=== PATIENT | female | born 1935 | race Caucasian/White ===

== ENCOUNTER 2017-05-20 17:48 | Observation (INO) | payer MEDICARE ==
--- NOTE | 2017-05-20 18:21 | ED ---
General Adult HPI - General Chief complaint: Chest Pain Stated complaint: Chest Pain Time Seen by Provider: 05/20/17 17:53 Source: patient, EMS, RN notes reviewed Mode of arrival: EMS Limitations: no limitations - History of Present Illness Initial comments: 81-year-old female presents with a one-day history of left anterior chest pain. Patient describes the pain as an ache, she does admit to taking trauma to her back. [facility]. Patient admits to having a cough over the past 4 hours, this was productive of thick sputum. She also admits to one episode of vomiting. Patient was given aspirin and nitroglycerin prior to arrival by EMS. EMS did report a reduction in her symptoms with nitroglycerin. Patient has no known history of coronary artery disease. She is a nonsmoker. Patient states that with her hip operation she was found to be in A. fib. She believes she was started on a blood thinner but is on certain of the name. - Related Data Home Medications Medication Instructions Recorded Confirmed Albuterol Nebulized [Ventolin 2.5 mg INHALATION RT-Q6H PRN 02/02/16 05/20/17 Nebulized] Calcium Carbonate/Vitamin D3 1 tab PO DAILY@1700 02/02/16 05/20/17 [Calcium 600-Vit D3 200 Tablet] Fexofenadine HCl [Ayaka Allergy] 180 mg PO DAILY@0800 02/02/16 05/20/17 Fluticasone/Salmeterol [Advair 1 puff INHALATION RT-BID@0800,1700 02/02/1605/20 500-50 Diskus] Levothyroxine Sodium [Synthroid] 75 mcg PO DAILY@0600 02/02/16 05/20/17 Losartan [Cozaar] 25 mg PO DAILY@0800 02/02/16 05/20/17 Multivitamins, Thera [Multivitamin] 1 tab PO BID@0800,1700 02/02/16 05/20/17 traMADol HCL [Ultram] 50 mg PO Q12H PRN 02/02/16 05/20/17 ALPRAZolam [Xanax] 0.5 mg PO BID PRN 05/20/17 05/20/17 Acetaminophen Tab [Tylenol Tab] 650 mg PO Q4H PRN 05/20/17 05/20/17 Bacillus Coagulans [Digestive 2 tab PO DAILY@1700 05/20/17 05/20/17 Advantage] Bisacodyl [Dulcolax] 10 mg RECTAL DAILY PRN 05/20/17 05/20/17 Docusate [Colace] 100 mg PO BID@0800,1700 05/20/17 05/20/17 Glucerna 1.5 237 ml PO AC-TID@08,12,17 05/20/17 05/20/17 Glucosamine/Chondr Kruger A Sod [Osteo 1 tab PO BID@0800,1700 05/20/17 05/20/17 Bi-Flex Caplet] HYDROcodone/APAP 5-325MG [[place] 1 - 2 tab PO Q4HR PRN 05/20/17 05/20/17 5-325] Hydrocortisone Cream 1 applic TOPICAL BID 05/20/17 05/20/17 [Hydrocortisone 2.5% Cream] Magnesium Hydroxide [Milk of 2,400 mg PO DAILY PRN 05/20/17 05/20/17 Magnesia] Magnesium Oxide [Mag-Ox] 400 mg PO BID@0800,1700 05/20/17 05/20/17 Metoprolol Tartrate [Lopressor] 25 mg PO BID@0800,2100 05/20/17 05/20/17 Na Phos,M-B/Na Phos,Di-Ba [Fleet 133 ml RECTAL ONCE PRN 05/20/17 05/20/17 Adult] Rivaroxaban [Xarelto] 20 mg PO DAILY@1700 05/20/17 05/20/17 Sucralfate [Carafate] 1 gm PO TID PRN 05/20/17 05/20/17 Allergies Allergy/AdvReac Type Severity Reaction Status Date / Time acetaminophen [From Vicodin] Allergy "spaced Verified 05/20/17 19:00 out" alendronate sodium Allergy Unknown Verified 05/20/17 19:00 [From Fosamax] ciprofloxacin [From Cipro] Allergy Unknown Verified 05/20/17 19:00 ciprofloxacin HCl Allergy Unknown Verified 05/20/17 19:00 [From Cipro] clarithromycin [From Biaxin] Allergy Unknown Verified 05/20/17 19:00 codeine Allergy Unknown Verified 05/20/17 19:00 Childhood diazepam [From Valium] Allergy Unknown Verified 05/20/17 19:00 diphenhydramine HCl Allergy Unknown Verified 05/20/17 19:00 [From Benadryl] famotidine [From Pepcid] Allergy Swelling Verified 05/20/17 19:00 gabapentin [From Neurontin] Allergy "spaced Verified 05/20/17 19:00 out" gatifloxacin [From Tequin] Allergy Unknown Verified 05/20/17 19:00 hydrocodone bitartrate Allergy "spaced Verified 05/20/17 19:00 [From Vicodin] out" levofloxacin [From Levaquin] Allergy Unknown Verified 05/20/17 19:00 moxifloxacin HCl Allergy Unknown Verified 05/20/17 19:00 [From Avelox] nystatin Allergy Unknown Verified 05/20/17 19:00 ofloxacin [From Floxin] Allergy Unknown Verified 05/20/17 19:00 Penicillins Allergy Unknown Verified 05/20/17 19:00 Childhood pregabalin [From Lyrica] Allergy Unknown Verified 05/20/17 19:00 propoxyphene napsylate Allergy Unknown Verified 05/20/17 19:00 [From Darvocet-N] rofecoxib [From Vioxx] Allergy Unknown Verified 05/20/17 19:00 Sulfa (Sulfonamide Allergy Unknown Verified 05/20/17 19:00 Antibiotics) Childhood zolpidem tartrate Allergy Unknown Verified 05/20/17 19:00 [From Ambien] Review of Systems ROS Statement: Those systems with pertinent positive or pertinent negative responses have been documented in the HPI. ROS Other: All systems not noted in ROS Statement are negative. Past Medical History Past Medical History: Atrial Fibrillation, Asthma, Diabetes Mellitus, Deep Vein Thrombosis (DVT), Fibromyalgia, Hypertension, Osteoarthritis (OA), Thyroid Disorder Additional Past Medical History / Comment(s): hx migraines, fell in garage 01/21 and injured both wrists and back (splint on left wrist,wrap on rt wrist), DVT 3 yrs ago, hiatal hernia, hx ulcer, osteoporosis, "very thin skin- discolored skin on legs", diet control diabetic, hx frequent UTI's History of Any Multi-Drug Resistant Organisms: None Reported Past Surgical History: Back Surgery, Heart Catheterization, Hernia Repair, Hysterectomy Additional Past Surgical History / Comment(s): deviated septum, kyphoplasty, steve cataracts Past Anesthesia/Blood Transfusion Reactions: Motion Sickness, Postoperative Nausea & Vomiting (PONV) Past Psychological History: Anxiety, Depression Smoking Status: Former smoker Past Alcohol Use History: None Reported Past Drug Use History: None Reported - Past Family History Mother Family Medical History: Cancer Brother(s) Family Medical History: Cancer Sister(s) Family Medical History: Cancer General Exam Limitations: no limitations General appearance: alert, in no apparent distress Head exam: Present: atraumatic, normocephalic Eye exam: Present: normal appearance, PERRL ENT exam: Present: normal exam Neck exam: Present: normal inspection. Absent: tenderness, meningismus Respiratory exam: Present: normal lung sounds bilaterally. Absent: respiratory distress, wheezes Cardiovascular Exam: Present: regular rate, normal rhythm GI/Abdominal exam: Present: soft. Absent: distended, tenderness Extremities exam: Present: normal inspection, normal capillary refill, other ( Bilateral DP pulses). Absent: pedal edema Neurological exam: Present: alert, oriented X3. Absent: motor sensory deficit, reflexes normal Psychiatric exam: Present: normal affect, normal mood Skin exam: Present: warm, dry, intact. Absent: cyanosis, diaphoretic Course Vital Signs 05/20/17 05/20/17 05/20/17 17:50 19:50 20:45 Temperature 98.6 F Pulse Rate 73 84 70 Respiratory 20 20 20 Rate Blood Pressure 139/66 139/66 143/69 O2 Sat by Pulse 99 99 99 Oximetry 05/20/17 21:20 Temperature 98.3 F Pulse Rate 70 Respiratory 18 Rate Blood Pressure 123/58 O2 Sat by Pulse 97 Oximetry EKG Findings - EKG Comments: EKG Findings:: EKG shows sinus rhythm with PVC, ventricular rate 75, WV interval 176, QRS 82, QTC 442, no ST segment elevation no T-wave abnormality Medical Decision Making - Medical Decision Making 81-year-old female [facility]. Patient's pain is central, she does state that was somewhat relieved with nitroglycerin. She has no history of CAD. Patient has had a productive cough, one episode of vomiting. Laboratory studies reveal stable hemoglobin 10.1, no elevated white blood cell count normal at 5.7, d-dimer significantly elevated 3.9, initial troponin is negative. CT angiography is obtained given the elevated d-dimer, this is negative for pulmonary embolism. Chest x-ray does show hyperinflation consistent with COPD, however patient has no known history COPD and states she hasn't smoked in 30 years. EKG is nonischemic. Patient will be kept for serial cardiac enzymes and cardiology evaluation. - Lab Data Result diagrams: 05/20/17 17:55 05/20/17 17:55 Lab Results 05/20/17 05/20/17 05/20/17 Range/Units 17:55 17:55 17:55 WBC 5.7 (3.8-10.6) k/uL RBC 3.59 L (3.80-5.40) m/uL Hgb 10.1 L (11.4-16.0) gm/dL Hct 33.6 L (34.0-46.0) % MCV 93.5 (80.0-100.0) fL MCH 28.2 (25.0-35.0) pg MCHC 30.1 L (31.0-37.0) g/dL RDW 13.2 (11.5-15.5) % Plt Count 456 H (150-450) k/uL Neutrophils % 67 % Lymphocytes % 23 % Monocytes % 6 % Eosinophils % 1 % Basophils % 0 % Neutrophils # 3.9 (1.3-7.7) k/uL Lymphocytes # 1.3 (1.0-4.8) k/uL Monocytes # 0.3 (0-1.0) k/uL Eosinophils # 0.1 (0-0.7) k/uL Basophils # 0.0 (0-0.2) k/uL Hypochromasia Slight PT (9.0-12.0) sec INR (<1.2) APTT (22.0-30.0) sec D-Dimer (<0.60) mg/L FEU Sodium 138 (137-145) mmol/L Potassium 4.0 (3.5-5.1) mmol/L Chloride 101 (98-107) mmol/L Carbon Dioxide 26 (22-30) mmol/L Anion Gap 11 mmol/L BUN 14 (7-17) mg/dL Creatinine 0.69 (0.52-1.04) mg/dL Est GFR (MDRD) Af Amer >60 (>60 ml/min/1.73 sqM) Est GFR (MDRD) Non-Af >60 (>60 ml/min/1.73 sqM) Glucose 176 H (74-99) mg/dL Calcium 10.0 (8.4-10.2) mg/dL Magnesium 2.0 (1.6-2.3) mg/dL Total Bilirubin 0.4 (0.2-1.3) mg/dL AST 19 (14-36) U/L ALT 22 (9-52) U/L Alkaline Phosphatase 144 H (38-126) U/L Total Creatine Kinase 21 L (30-135) U/L CK-MB (CK-2) 0.4 (0.0-2.4) ng/mL CK-MB (CK-2) Rel Index 1.9 Troponin I <0.012 (0.000-0.034) ng/mL NT-Pro-B Natriuret Pep pg/mL Total Protein 6.5 (6.3-8.2) g/dL Albumin 3.7 (3.5-5.0) g/dL 05/20/17 05/20/17 Range/Units 17:55 17:55 WBC (3.8-10.6) k/uL RBC (3.80-5.40) m/uL Hgb (11.4-16.0) gm/dL Hct (34.0-46.0) % MCV (80.0-100.0) fL MCH (25.0-35.0) pg MCHC (31.0-37.0) g/dL RDW (11.5-15.5) % Plt Count (150-450) k/uL Neutrophils % % Lymphocytes % % Monocytes % % Eosinophils % % Basophils % % Neutrophils # (1.3-7.7) k/uL Lymphocytes # (1.0-4.8) k/uL Monocytes # (0-1.0) k/uL Eosinophils # (0-0.7) k/uL Basophils # (0-0.2) k/uL Hypochromasia PT 13.6 H (9.0-12.0) sec INR 1.4 H (<1.2) APTT 30.2 H (22.0-30.0) sec D-Dimer 3.90 H (<0.60) mg/L FEU Sodium (137-145) mmol/L Potassium (3.5-5.1) mmol/L Chloride (98-107) mmol/L Carbon Dioxide (22-30) mmol/L Anion Gap mmol/L BUN (7-17) mg/dL Creatinine (0.52-1.04) mg/dL Est GFR (MDRD) Af Amer (>60 ml/min/1.73 sqM) Est GFR (MDRD) Non-Af (>60 ml/min/1.73 sqM) Glucose (74-99) mg/dL Calcium (8.4-10.2) mg/dL Magnesium (1.6-2.3) mg/dL Total Bilirubin (0.2-1.3) mg/dL AST (14-36) U/L ALT (9-52) U/L Alkaline Phosphatase (38-126) U/L Total Creatine Kinase (30-135) U/L CK-MB (CK-2) (0.0-2.4) ng/mL CK-MB (CK-2) Rel Index Troponin I (0.000-0.034) ng/mL NT-Pro-B Natriuret Pep 321 pg/mL Total Protein (6.3-8.2) g/dL Albumin (3.5-5.0) g/dL Disposition Clinical Impression: Chest pain Disposition: ADMITTED IP TO THIS [facility] Condition: Stable Referrals: Pepe Verdugo MD [Primary Care Provider] - 1-2 days Decision to Admit Reason: Admit from [facility] Decision Date: 05/20/17 Decision Time: 21:05
[2017-05-20 18:58] LABS: Basophils % (A) 0 %; CHCM 31.1; Eosinophils # (A) 0.1 k/uL (0-0.7); Eosinophils % (A) 1 %; HCT 33.6 % (34.0-46.0); HDW 2.39; HGB 10.1 gm/dL (11.4-16.0); Hypochromasia Slight; Luc # (Auto) 0.14; Luc % (Auto) 3; Lymphocytes # (A) 1.3 k/uL (1.0-4.8); Lymphocytes % (A) 23 %; MCH 28.2 pg (25.0-35.0); MCHC 30.1 g/dL (31.0-37.0); MCV 93.5 fL (80.0-100.0); Mean Platelet Volume 6.5; Monocytes # (A) 0.3 k/uL (0-1.0); Monocytes % (A) 6 %; Neutrophils # (A) 3.9 k/uL (1.3-7.7); Neutrophils % (A) 67 %; RBC 3.59 m/uL (3.80-5.40); RDW 13.2 % (11.5-15.5); WBC 5.7 k/uL (3.8-10.6); WBC (Perox) 5.27
[2017-05-20 19:08] LABS: ALT 22 U/L (9-52); AST 19 U/L (14-36); Alkaline Phosphatase 144 U/L (38-126); Anion Gap 11 mmol/L; Blood Urea Nitrogen 14 mg/dL (7-17); Carbon Dioxide 26 mmol/L (22-30); Chloride 101 mmol/L (98-107); Glucose 176 mg/dL (74-99); Non-African American GFR(MDRD) >60 (>60 ml/min/1.73 sqM); Sodium 138 mmol/L (137-145); Total Bilirubin 0.4 mg/dL (0.2-1.3); Total Protein 6.5 g/dL (6.3-8.2)
[2017-05-20 19:14] LABS: INR 1.4 (<1.2); Partial Thromboplastin Time 30.2 sec (22.0-30.0); Prothrombin Time 13.6 sec (9.0-12.0)
[2017-05-20 19:19] LABS: Creatine Kinase 21 U/L (30-135)
[2017-05-20 19:32] LABS: Creatine Kinase MB 0.4 ng/mL (0.0-2.4); Troponin I <0.012 ng/mL (0.000-0.034)
[2017-05-20] MEDS ORDERED: RX INFO: IV CONTRAST WAS GIVEN 1 EACH MISC MISCELLANE PRN (19:40)
--- NOTE | 2017-05-20 20:04 | XR ---
EXAMINATION TYPE: XR chest 2V DATE OF EXAM: 05/20/2017 COMPARISON: NONE HISTORY: Chest pain TECHNIQUE: Frontal and lateral views of the chest are obtained. FINDINGS: There is no heart failure nor confluent pneumonic infiltrate. There is mild pulmonary hype rinflation. There is 20% wedging of upper thoracic vertebra. There is 30% anterior wedging of T10 lenny tebra. There are chest leads. Thoracic aorta is atheromatous. There are no hilar masses. IMPRESSION: There is probably some COPD. No acute lung disease. Mild thoracic compression fractures.
--- NOTE | 2017-05-20 20:55 | CT ---
EXAMINATION TYPE: CT angio chest DATE OF EXAM: 05/20/2017 8:17 PM COMPARISON: NONE HISTORY: Chest pain. Post op hip sx x2 weeks. CT DLP: 191.1 mGycm Automated exposure control for dose reduction was used. CONTRAST: CTA scan of the thorax is performed with IV Contrast, patient injected with 65 mL of Omnipaque 300, p ulmonary embolism protocol. There are 3-D post processed images.. FINDINGS: Lungs are clear of consolidation. There is a 3 cm patch of interstitial infiltrate in the left upper lobe. There is no sign of a pulmonary mass. There are some interstitial infiltrates and atelectasis a t the lung bases. Heart size is top normal. There is no pericardial effusion. There is no pleural eff usion. I see no filling defects in the pulmonary arteries. There is no evidence of aortic aneurysm or dissec tion. Thoracic aorta is atheromatous. There is no mediastinal adenopathy. There are no hilar masses. There is compression deformity of several thoracic vertebra with osteopenia. There is compression def ormity of L1 and L2 vertebra. There is L1 vertebroplasty. IMPRESSION: NO EVIDENCE OF PULMONARY EMBOLISM. MULTIPLE OSTEOPOROTIC COMPRESSION FRACTURES. PULMONARY FIBROTIC CH ANGES. ATHEROSCLEROTIC VASCULAR DISEASE. BORDERLINE CARDIOMEGALY.
[2017-05-20] MEDS ORDERED: ONDANSETRON 4 MG/2 ML VIAL IVP PRN (21:28)
[2017-05-20] MEDS ORDERED: NALOXONE 0.4 MG/ML 1 ML VIAL IV PRN (21:28)
[2017-05-20] MEDS ORDERED: SODIUM CHLORIDE 0.9% 1,000 ML IV SCH (21:30)
[2017-05-20] MEDS ORDERED: ASPIRIN 81 MG PO STA (21:30)
[2017-05-20] MEDS ORDERED: ALPRAZolam 0.5 MG TAB PO PRN (21:31)
[2017-05-20 23:09] VITALS: BMI 22.4
[2017-05-20] MEDS: HYDROcodone/APAP 5-325MG 1 EACH TAB PO PRN (23:40)
[2017-05-21 00:13] VITALS: RESP 18
[2017-05-21 00:19] LABS: Creatine Kinase <20 U/L (30-135)
[2017-05-21 00:32] LABS: Creatine Kinase MB 0.4 ng/mL (0.0-2.4); Troponin I <0.012 ng/mL (0.000-0.034)
[2017-05-21] MEDS: HYDROcodone/APAP 5-325MG 1 EACH TAB PO PRN (04:02)
[2017-05-21] MEDS ORDERED: LEVOTHYROXINE 75 MCG TAB PO SCH (06:00)
[2017-05-21 07:06] LABS: Glucose,Whole Blood 116 mg/dL (75-99)
[2017-05-21 07:36] LABS: Basophils % (A) 0 %; CH 30.4; CHCM 31.7; Eosinophils # (A) 0.1 k/uL (0-0.7); Eosinophils % (A) 2 %; HCT 31.9 % (34.0-46.0); HDW 2.32; HGB 9.7 gm/dL (11.4-16.0); Luc # (Auto) 0.12; Luc % (Auto) 3; Lymphocytes # (A) 1.5 k/uL (1.0-4.8); Lymphocytes % (A) 37 %; MCH 29.3 pg (25.0-35.0); MCHC 30.4 g/dL (31.0-37.0); MCV 96.4 fL (80.0-100.0); Mean Platelet Volume 7.2; Monocytes # (A) 0.4 k/uL (0-1.0); Monocytes % (A) 8 %; Neutrophils % (A) 49 %; RBC 3.31 m/uL (3.80-5.40); RDW 14.4 % (11.5-15.5); WBC 4.1 k/uL (3.8-10.6); WBC (Perox) 4.44
[2017-05-21 07:38] LABS: Creatine Kinase <20 U/L (30-135)
[2017-05-21 07:44] LABS: ALT 26 U/L (9-52); AST 17 U/L (14-36); Alkaline Phosphatase 129 U/L (38-126); Anion Gap 10 mmol/L; Blood Urea Nitrogen 14 mg/dL (7-17); Calcium 9.8 mg/dL (8.4-10.2); Carbon Dioxide 26 mmol/L (22-30); Chloride 105 mmol/L (98-107); Glucose 107 mg/dL (74-99); Magnesium 1.9 mg/dL (1.6-2.3); Non-African American GFR(MDRD) >60 (>60 ml/min/1.73 sqM); Potassium 3.9 mmol/L (3.5-5.1); Sodium 141 mmol/L (137-145); Total Bilirubin 0.3 mg/dL (0.2-1.3)
[2017-05-21 07:50] LABS: Creatine Kinase MB 0.3 ng/mL (0.0-2.4); Troponin I <0.012 ng/mL (0.000-0.034)
[2017-05-21] MEDS ORDERED: LOSARTAN 25 MG TAB PO SCH (08:00)
[2017-05-21] MEDS ORDERED: METOPROLOL TARTRATE 25 MG TAB PO SCH (08:00)
[2017-05-21] MEDS ORDERED: ALBUTEROL NEBULIZED 2.5 MG/3 ML INHALATION PRN (10:43)
[2017-05-21] MEDS ORDERED: BISACODYL 10 MG SUPP RECTAL PRN (10:43)
[2017-05-21] MEDS ORDERED: MAGNESIUM HYDROXIDE 2,400 MG/10 ML CUP PO PRN (10:43)
[2017-05-21] MEDS ORDERED: HYDROcodone/APAP 5-325MG 1 EACH TAB PO PRN (10:43)
[2017-05-21] MEDS ORDERED: SUCRALFATE 1 GM TAB PO PRN (10:43)
[2017-05-21] MEDS ORDERED: ACETAMINOPHEN TAB 325 MG TAB PO PRN (10:43)
[2017-05-21 11:56] LABS: Glucose,Whole Blood 180 mg/dL (75-99)
[2017-05-21] MEDS ORDERED: GLUCERNA PO SCH (12:00)
--- NOTE | 2017-05-21 13:23 | P.HPIM ---
History of Present Illness H&P Date: 05/21/17 Chief Complaint: Chest pain HISTORY AND PHYSICAL AND DISCHARGE SUMMARY: This is a 81-year-old female patient of Dr. Mena with a past medical history of atrial fibrillation, asthma, diabetes mellitus, DVT, hypertension, osteoarthritis, hypothyroidism, migraine headaches, osteoporosis, hiatal hernia. Patient is currently residing at [facility] for rehabilitation status post hip fracture. Patient states that on Saturday she had a sudden onset of coughing and thought she was choking to . She has had cough since that but not as severe. She is complaining of pain in the left chest wall that is tender to touch. Patient presented to [facility] emergency center. EKG was a sinus rhythm with no ST-T wave changes. Her hemoglobin was 10.1. Patient did receive nitroglycerin with some improvement of her pain. Troponin negative 3. D-dimer was elevated at 3.9. CTA of the chest shows no evidence of pulmonary embolism. Multiple osteoporotic compression fractures. Pulmonary fibrotic changes. Atherosclerotic vascular disease. Borderline cardiomegaly. Chest x- ray shows probable COPD with no acute findings. Mild thoracic compression fractures. Patient has been placed in the observation unit. She has been seen in consultation by cardiology and echocardiogram has been ordered. No plan for further intervention. Patient will be discharged back to [facility] to complete further rehab. We have made only one medication change which is Motrin to be taken scheduled 3 times daily for the next 5 days and then as needed. Past Medical History Past Medical History: Atrial Fibrillation, Asthma, Diabetes Mellitus, Deep Vein Thrombosis (DVT), Hypertension, Osteoarthritis (OA), Thyroid Disorder Additional Past Medical History / Comment(s): hx migraines, fell in garage 01/21 and injured both wrists and back (splint on left wrist,wrap on rt wrist), DVT 3 yrs ago, hiatal hernia, hx ulcer, osteoporosis, "very thin skin- discolored skin on legs", diet control diabetic, hx frequent UTI's, osteoporosis History of Any Multi-Drug Resistant Organisms: None Reported Past Surgical History: Back Surgery, Heart Catheterization, Hernia Repair, Hysterectomy Additional Past Surgical History / Comment(s): deviated septum, kyphoplasty, steve cataracts Past Anesthesia/Blood Transfusion Reactions: Motion Sickness, Postoperative Nausea & Vomiting (PONV) Past Psychological History: Anxiety, Depression Smoking Status: Former smoker Past Alcohol Use History: None Reported Additional Past Alcohol Use History / Comment(s): quit smoking approx 25 yrs ago , smoked for approx 40 yrs, 1 PPD Past Drug Use History: None Reported - Past Family History Mother Family Medical History: Cancer Additional Family Medical History / Comment(s): Colon Brother(s) Family Medical History: Cancer Additional Family Medical History / Comment(s): Colon Sister(s) Family Medical History: Cancer Additional Family Medical History / Comment(s): lung CA Father Family Medical History: Cancer Additional Family Medical History / Comment(s): Testicular CA Medications and Allergies Home Medications Medication Instructions Recorded Confirmed Type Albuterol Nebulized [Ventolin 2.5 mg INHALATION RT-Q6H PRN 02/02/16 05/20/17 History Nebulized] Calcium Carbonate/Vitamin D3 1 tab PO DAILY@1700 02/02/16 05/20/17 History [Calcium 600-Vit D3 200 Tablet] Fexofenadine HCl [Ayaka Allergy] 180 mg PO DAILY@0800 02/02/16 05/20/17 History Fluticasone/Salmeterol [Advair 1 puff INHALATION RT-BID@0800,1700 02/02/1605/20 History 500-50 Diskus] Levothyroxine Sodium [Synthroid] 75 mcg PO DAILY@0600 02/02/16 05/20/17 History Losartan [Cozaar] 25 mg PO DAILY@0800 02/02/16 05/20/17 History Multivitamins, Thera [Multivitamin] 1 tab PO BID@0800,1700 02/02/16 05/20/17 History traMADol HCL [Ultram] 50 mg PO Q12H PRN 02/02/16 05/20/17 History ALPRAZolam [Xanax] 0.5 mg PO BID PRN 05/20/17 05/20/17 History Acetaminophen Tab [Tylenol Tab] 650 mg PO Q4H PRN 05/20/17 05/20/17 History Bacillus Coagulans [Digestive 2 tab PO DAILY@1700 05/20/17 05/20/17 History Advantage] Bisacodyl [Dulcolax] 10 mg RECTAL DAILY PRN 05/20/17 05/20/17 History Docusate [Colace] 100 mg PO BID@0800,1700 05/20/17 05/20/17 History Glucerna 1.5 237 ml PO AC-TID@08,12,17 05/20/17 05/20/17 History Glucosamine/Chondr Kruger A Sod [Osteo 1 tab PO BID@0800,1700 05/20/17 05/20/17 History Bi-Flex Caplet] HYDROcodone/APAP 5-325MG [[place] 1 - 2 tab PO Q4HR PRN 05/20/17 05/20/17 History 5-325] Hydrocortisone Cream 1 applic TOPICAL BID 05/20/17 05/20/17 History [Hydrocortisone 2.5% Cream] Magnesium Hydroxide [Milk of 2,400 mg PO DAILY PRN 05/20/17 05/20/17 History Magnesia] Magnesium Oxide [Mag-Ox] 400 mg PO BID@0800,1700 05/20/17 05/20/17 History Metoprolol Tartrate [Lopressor] 25 mg PO BID@0800,2100 05/20/17 05/20/17 History Na Phos,M-B/Na Phos,Di-Ba [Fleet 133 ml RECTAL ONCE PRN 05/20/17 05/20/17 History Adult] Rivaroxaban [Xarelto] 20 mg PO DAILY@1700 05/20/17 05/20/17 History Sucralfate [Carafate] 1 gm PO TID PRN 05/20/17 05/20/17 History Ibuprofen [Motrin] 600 mg PO Q8HR #15 tab 05/21/17 Rx Allergies Allergy/AdvReac Type Severity Reaction Status Date / Time acetaminophen [From Vicodin] Allergy "spaced Verified 05/20/17 22:37 out" alendronate sodium Allergy Unknown Verified 05/20/17 22:37 [From Fosamax] ciprofloxacin [From Cipro] Allergy Unknown Verified 05/20/17 22:37 ciprofloxacin HCl Allergy Unknown Verified 05/20/17 22:37 [From Cipro] clarithromycin [From Biaxin] Allergy Unknown Verified 05/20/17 22:37 codeine Allergy Unknown Verified 05/20/17 22:37 Childhood diazepam [From Valium] Allergy Unknown Verified 05/20/17 22:37 diphenhydramine HCl Allergy Unknown Verified 05/20/17 22:37 [From Benadryl] famotidine [From Pepcid] Allergy Swelling Verified 05/20/17 22:37 gabapentin [From Neurontin] Allergy "spaced Verified 05/20/17 22:37 out" gatifloxacin [From Tequin] Allergy Unknown Verified 05/20/17 22:37 hydrocodone bitartrate Allergy "spaced Verified 05/20/17 22:37 [From Vicodin] out" levofloxacin [From Levaquin] Allergy Unknown Verified 05/20/17 22:37 moxifloxacin HCl Allergy Unknown Verified 05/20/17 22:37 [From Avelox] nystatin Allergy Unknown Verified 05/20/17 22:37 ofloxacin [From Floxin] Allergy Unknown Verified 05/20/17 22:37 Penicillins Allergy Unknown Verified 05/20/17 22:37 Childhood pregabalin [From Lyrica] Allergy Unknown Verified 05/20/17 22:37 propoxyphene napsylate Allergy Unknown Verified 05/20/17 22:37 [From Darvocet-N] rofecoxib [From Vioxx] Allergy Unknown Verified 05/20/17 22:37 Sulfa (Sulfonamide Allergy Unknown Verified 05/20/17 22:37 Antibiotics) Childhood zolpidem tartrate Allergy Unknown Verified 05/20/17 22:37 [From Ambien] Physical Exam Vitals: Vital Signs Temp Pulse Pulse Resp BP BP BP 05/21/17 11:57 98.6 F 105 H 18 132/69 05/21/17 08:00 97.6 F 77 18 134/71 05/21/17 04:00 97.9 F 87 18 124/68 05/21/17 00:00 97.9 F 73 18 148/70 05/20/17 23:59 18 05/20/17 21:48 98.3 F 70 20 132/56 05/20/17 21:20 98.3 F 70 18 123/58 05/20/17 20:45 70 20 143/69 05/20/17 19:50 84 20 139/66 05/20/17 17:50 98.6 F 73 20 139/66 Pulse Ox 05/21/17 11:57 95 05/21/17 08:00 98 05/21/17 04:00 95 05/21/17 00:00 100 05/20/17 23:59 05/20/17 21:48 99 05/20/17 21:20 97 05/20/17 20:45 99 05/20/17 19:50 99 05/20/17 17:50 99 Intake and Output 05/20/17 05/21/17 05/21/17 22:59 06:59 14:59 Other: Voiding Method Bedside Commode # Voids 1 1 # Bowel Movements 1 Weight 55.7 kg Gen: This is a 81-year-old female. She is sitting up in bed and appears in no acute distress. HEENT: Head is atraumatic, normocephalic. Pupils equal, round. Sclerae is anicteric. NECK: Supple. No JVD. No lymphadenopathy. No thyromegaly. LUNGS: Clear to auscultation. No wheezes or rhonchi. No intercostal retractions. HEART: Regular rate and rhythm. No murmur. ABDOMEN: Soft. Bowel sounds are present. No masses. No tenderness. EXTREMITIES: No pedal edema. No calf tenderness. NEUROLOGICAL: Patient is awake, alert and oriented x3. Cranial nerves 2 through 12 are grossly intact. Results CBC & Chem 7: 05/21/17 06:25 05/21/17 06:25 Labs: Abnormal Lab Results - Last 24 Hours (Table) 05/20/17 05/20/17 05/20/17 Range/Units 17:55 17:55 17:55 RBC 3.59 L (3.80-5.40) m/uL Hgb 10.1 L (11.4-16.0) gm/dL Hct 33.6 L (34.0-46.0) % MCHC 30.1 L (31.0-37.0) g/dL Plt Count 456 H (150-450) k/uL PT (9.0-12.0) sec INR (<1.2) APTT (22.0-30.0) sec D-Dimer (<0.60) mg/L FEU Glucose 176 H (74-99) mg/dL POC Glucose (mg/dL) (75-99) mg/dL Alkaline Phosphatase 144 H (38-126) U/L Total Creatine Kinase 21 L (30-135) U/L Total Protein (6.3-8.2) g/dL Albumin (3.5-5.0) g/dL 05/20/17 05/20/17 05/21/17 Range/Units 17:55 23:45 06:25 RBC 3.31 L (3.80-5.40) m/uL Hgb 9.7 L (11.4-16.0) gm/dL Hct 31.9 L (34.0-46.0) % MCHC 30.4 L (31.0-37.0) g/dL Plt Count (150-450) k/uL PT 13.6 H (9.0-12.0) sec INR 1.4 H (<1.2) APTT 30.2 H (22.0-30.0) sec D-Dimer 3.90 H (<0.60) mg/L FEU Glucose (74-99) mg/dL POC Glucose (mg/dL) (75-99) mg/dL Alkaline Phosphatase (38-126) U/L Total Creatine Kinase <20 L (30-135) U/L Total Protein (6.3-8.2) g/dL Albumin (3.5-5.0) g/dL 05/21/17 05/21/17 05/21/17 Range/Units 06:25 06:25 07:01 RBC (3.80-5.40) m/uL Hgb (11.4-16.0) gm/dL Hct (34.0-46.0) % MCHC (31.0-37.0) g/dL Plt Count (150-450) k/uL PT (9.0-12.0) sec INR (<1.2) APTT (22.0-30.0) sec D-Dimer (<0.60) mg/L FEU Glucose 107 H (74-99) mg/dL POC Glucose (mg/dL) 116 H (75-99) mg/dL Alkaline Phosphatase 129 H (38-126) U/L Total Creatine Kinase <20 L (30-135) U/L Total Protein 6.0 L (6.3-8.2) g/dL Albumin 3.3 L (3.5-5.0) g/dL 05/21/17 Range/Units 11:53 RBC (3.80-5.40) m/uL Hgb (11.4-16.0) gm/dL Hct (34.0-46.0) % MCHC (31.0-37.0) g/dL Plt Count (150-450) k/uL PT (9.0-12.0) sec INR (<1.2) APTT (22.0-30.0) sec D-Dimer (<0.60) mg/L FEU Glucose (74-99) mg/dL POC Glucose (mg/dL) 180 H (75-99) mg/dL Alkaline Phosphatase (38-126) U/L Total Creatine Kinase (30-135) U/L Total Protein (6.3-8.2) g/dL Albumin (3.5-5.0) g/dL Thrombosis Risk Factor Assmnt - DVT/VTE Prophylaxis DVT/VTE Prophylaxis: Pharmacologic Prophylaxis ordered - Choose All That Apply Each Risk Factor Represents 3 Points: Age 75 years or older Thrombosis Risk Factor Assessment Total Risk Factor Score: 3 Thrombosis Risk Factor Assessment Level: Moderate Risk Assessment and Plan Plan: 1. Chest pain, chest wall pain from coughing. 2. Paroxysmal atrial fibrillation. Patient is on Xarelto and Lopressor 25 mg twice daily 3. Hypertension. Continue Lopressor, losartan. 4. Diabetes mellitus type 2, diet controlled.. 5. Hypothyroidism. Continue levothyroxine 75 g daily. 6. Mild intermittent asthma, stable continue nebulizer treatments as needed. 7. Recent hip fracture, stable patient is undergoing therapy at [facility]. Patient placed on the observation unit. Discharge plan: Return to [facility] Impression and plan of care have been directed as dictated by the signing physician. Rosemarie Jefferson nurse practitioner acting as scribe for signing physician.
--- NOTE | 2017-05-21 14:03 | P.CRDCN ---
History of Present Illness Consult date: 05/21/17 History of present illness: This is a very pleasant 81-year-old female who follows with Dr. Elizabeth as an outpatient. Past medical history significant for atrial fibrillation on long-term anticoagulation, DM and hypertension. She is a former smoker of 40 years, quit 25 yrs ago. She presents to the hospital from [facility] where she is undergoing rehabilitation s/p right hip fracture and subsequent repair. She states starting a couple of days ago she has been coughing. It is a productive cough with thick sputum. After a couple of days of coughing she started feeling left sided chest pain described as burning. The pain does not radiate anywhere, she denies associated shortness of breath, dizziness, palpitations, diaphoresis or nausea. She is newly diagnosed with atrial fibrillation after her surgery earlier this month at [facility] in [place]. She states a heavy the blood thinner to her daily medication regimen and she underwent cardioversion prior to being discharged. She is in sinus rhythm right now. EKG reveals sinus mechanism with no acute ST or T-wave abnormalities. Hgb 9.7, potassium 3.9, magnesium 2.0, BUN 14, Cr 0.69, cardiac enzymes negative x3, ProBNP 321, D-dimer elevated, CTA negative for PE. Blood pressure 134/71, heart rate 77. Review of Systems CONSTITUTIONAL: Denies fever. Denies chills. EYES: Denies blurred vision. Denies vision changes. Denies eye pain. EARS, NOSE, MOUTH & THROAT: Denies headache. Denies sore throat. Denies ear pain. CARDIOVASCULAR: Complains of chest pain while coughing. Denies shortness of breath. Denies orthopnea. Denies PND. Denies palpitations. RESPIRATORY: Complains of cough. GASTROINTESTINAL: Denies abdominal pain. Denies diarrhea. Denies constipation. Denies nausea. Denies vomitng. MUSCULOSKELETAL: Denies myalgias. INTEGUMENTARY: Denies pruitis. Denies rash. NEUROLOGIC: Denies numbness. Denies tingling. Denies weakness. PSYCHIATRIC: Denies anxiety. Denies depression. ENDOCRINE: Denies fatigue. Denies weight change. Denies polydipsia. Denies polyurina. GENITOURINARY: Denies burning, hematuria or urgency with micturation. HEMATOLOGIC: Denies history of anemia. Denies bleeding. Past Medical History Past Medical History: Atrial Fibrillation, Asthma, Diabetes Mellitus, Deep Vein Thrombosis (DVT), Hypertension, Osteoarthritis (OA), Thyroid Disorder Additional Past Medical History / Comment(s): hx migraines, fell in garage 01/21 and injured both wrists and back (splint on left wrist,wrap on rt wrist), DVT 3 yrs ago, hiatal hernia, hx ulcer, osteoporosis, "very thin skin- discolored skin on legs", diet control diabetic, hx frequent UTI's, osteoporosis History of Any Multi-Drug Resistant Organisms: None Reported Past Surgical History: Back Surgery, Heart Catheterization, Hernia Repair, Hysterectomy Additional Past Surgical History / Comment(s): deviated septum, kyphoplasty, steve cataracts Past Anesthesia/Blood Transfusion Reactions: Motion Sickness, Postoperative Nausea & Vomiting (PONV) Past Psychological History: Anxiety, Depression Smoking Status: Former smoker Past Alcohol Use History: None Reported Additional Past Alcohol Use History / Comment(s): quit smoking approx 25 yrs ago , smoked for approx 40 yrs, 1 PPD Past Drug Use History: None Reported - Past Family History Mother Family Medical History: Cancer Additional Family Medical History / Comment(s): Colon Brother(s) Family Medical History: Cancer Additional Family Medical History / Comment(s): Colon Sister(s) Family Medical History: Cancer Additional Family Medical History / Comment(s): lung CA Father Family Medical History: Cancer Additional Family Medical History / Comment(s): Testicular CA Medications and Allergies Home Medications Medication Instructions Recorded Confirmed Type Albuterol Nebulized [Ventolin 2.5 mg INHALATION RT-Q6H PRN 02/02/16 05/20/17 History Nebulized] Calcium Carbonate/Vitamin D3 1 tab PO DAILY@1700 02/02/16 05/20/17 History [Calcium 600-Vit D3 200 Tablet] Fexofenadine HCl [Ayaka Allergy] 180 mg PO DAILY@0800 02/02/16 05/20/17 History Fluticasone/Salmeterol [Advair 1 puff INHALATION RT-BID@0800,1700 02/02/1605/20 History 500-50 Diskus] Levothyroxine Sodium [Synthroid] 75 mcg PO DAILY@0600 02/02/16 05/20/17 History Losartan [Cozaar] 25 mg PO DAILY@0800 02/02/16 05/20/17 History Multivitamins, Thera [Multivitamin] 1 tab PO BID@0800,1700 02/02/16 05/20/17 History traMADol HCL [Ultram] 50 mg PO Q12H PRN 02/02/16 05/20/17 History ALPRAZolam [Xanax] 0.5 mg PO BID PRN 05/20/17 05/20/17 History Acetaminophen Tab [Tylenol Tab] 650 mg PO Q4H PRN 05/20/17 05/20/17 History Bacillus Coagulans [Digestive 2 tab PO DAILY@1700 05/20/17 05/20/17 History Advantage] Bisacodyl [Dulcolax] 10 mg RECTAL DAILY PRN 05/20/17 05/20/17 History Docusate [Colace] 100 mg PO BID@0800,1700 05/20/17 05/20/17 History Glucerna 1.5 237 ml PO AC-TID@08,,05/20/17 05/20/17 History Glucosamine/Chondr Kruger A Sod [Osteo 1 tab PO BID@0800,1700 05/20/17 05/20/17 History Bi-Flex Caplet] HYDROcodone/APAP 5-325MG [[place] 1 - 2 tab PO Q4HR PRN 05/20/17 05/20/17 History 5-325] Hydrocortisone Cream 1 applic TOPICAL BID 05/20/17 05/20/17 History [Hydrocortisone 2.5% Cream] Magnesium Hydroxide [Milk of 2,400 mg PO DAILY PRN 05/20/17 05/20/17 History Magnesia] Magnesium Oxide [Mag-Ox] 400 mg PO BID@0800,1700 05/20/17 05/20/17 History Metoprolol Tartrate [Lopressor] 25 mg PO BID@0800,2100 05/20/17 05/20/17 History Na Phos,M-B/Na Phos,Di-Ba [Fleet 133 ml RECTAL ONCE PRN 05/20/17 05/20/17 History Adult] Rivaroxaban [Xarelto] 20 mg PO DAILY@1700 05/20/17 05/20/17 History Sucralfate [Carafate] 1 gm PO TID PRN 05/20/17 05/20/17 History Allergies Allergy/AdvReac Type Severity Reaction Status Date / Time acetaminophen [From Vicodin] Allergy "spaced Verified 05/20/17 22:37 out" alendronate sodium Allergy Unknown Verified 05/20/17 22:37 [From Fosamax] ciprofloxacin [From Cipro] Allergy Unknown Verified 05/20/17 22:37 ciprofloxacin HCl Allergy Unknown Verified 05/20/17 22:37 [From Cipro] clarithromycin [From Biaxin] Allergy Unknown Verified 05/20/17 22:37 codeine Allergy Unknown Verified 05/20/17 22:37 Childhood diazepam [From Valium] Allergy Unknown Verified 05/20/17 22:37 diphenhydramine HCl Allergy Unknown Verified 05/20/17 22:37 [From Benadryl] famotidine [From Pepcid] Allergy Swelling Verified 05/20/17 22:37 gabapentin [From Neurontin] Allergy "spaced Verified 05/20/17 22:37 out" gatifloxacin [From Tequin] Allergy Unknown Verified 05/20/17 22:37 hydrocodone bitartrate Allergy "spaced Verified 05/20/17 22:37 [From Vicodin] out" levofloxacin [From Levaquin] Allergy Unknown Verified 05/20/17 22:37 moxifloxacin HCl Allergy Unknown Verified 05/20/17 22:37 [From Avelox] nystatin Allergy Unknown Verified 05/20/17 22:37 ofloxacin [From Floxin] Allergy Unknown Verified 05/20/17 22:37 Penicillins Allergy Unknown Verified 05/20/17 22:37 Childhood pregabalin [From Lyrica] Allergy Unknown Verified 05/20/17 22:37 propoxyphene napsylate Allergy Unknown Verified 05/20/17 22:37 [From Darvocet-N] rofecoxib [From Vioxx] Allergy Unknown Verified 05/20/17 22:37 Sulfa (Sulfonamide Allergy Unknown Verified 05/20/17 22:37 Antibiotics) Childhood zolpidem tartrate Allergy Unknown Verified 05/20/17 22:37 [From Ambien] Physical Exam Vitals: Vital Signs Temp Pulse Pulse Resp BP BP BP 05/21/17 08:00 97.6 F 77 18 134/71 05/21/17 04:00 97.9 F 87 18 124/68 05/21/17 00:00 97.9 F 73 18 148/70 05/20/17 23:59 18 05/20/17 21:48 98.3 F 70 20 132/56 05/20/17 21:20 98.3 F 70 18 123/58 05/20/17 20:45 70 20 143/69 05/20/17 19:50 84 20 139/66 05/20/17 17:50 98.6 F 73 20 139/66 Pulse Ox 05/21/17 08:00 98 05/21/17 04:00 95 05/21/17 00:00 100 05/20/17 23:59 05/20/17 21:48 99 05/20/17 21:20 97 05/20/17 20:45 99 05/20/17 19:50 99 05/20/17 17:50 99 Intake and Output 05/20/17 05/21/17 05/21/17 22:59 06:59 14:59 Other: # Voids 1 1 # Bowel Movements 1 Weight 55.7 kg GENERAL: This is a 81-year-old female in no apparent distress at the time of my examination. HEENT: Head is atraumatic, normocephalic. Pupils are equal, round. Sclerae anicteric. Conjunctivae are clear. Mucous membranes of the mouth are moist. Neck is supple. There is no jugular venous distention. No carotid bruit is heard. LUNGS: Clear to auscultation no wheezes, rales or rhonchi. No chest wall tenderness is noted on palpation or with deep breathing. HEART: Regular rate and rhythm with systolic ejection murmur at the base, rubs or gallops. S1 and S2 heard. ABDOMEN: Soft, nontender. Bowel sounds are heard. No organomegaly noted. EXTREMITIES: 2+ peripheral pulses with no evidence of peripheral edema and no calf tenderness noted. NEUROLOGIC: Patient is awake, alert and oriented x3. Results 05/21/17 06:25 05/21/17 06:25 Cardiac Enzymes 05/20/17 05/20/17 05/20/17 Range/Units 17:55 17:55 17:55 WBC 5.7 (3.8-10.6) k/uL RBC 3.59 L (3.80-5.40) m/uL Hgb 10.1 L (11.4-16.0) gm/dL Hct 33.6 L (34.0-46.0) % MCV 93.5 (80.0-100.0) fL MCH 28.2 (25.0-35.0) pg MCHC 30.1 L (31.0-37.0) g/dL RDW 13.2 (11.5-15.5) % Plt Count 456 H (150-450) k/uL Neutrophils % 67 % Lymphocytes % 23 % Monocytes % 6 % Eosinophils % 1 % Basophils % 0 % Neutrophils # 3.9 (1.3-7.7) k/uL Lymphocytes # 1.3 (1.0-4.8) k/uL Monocytes # 0.3 (0-1.0) k/uL Eosinophils # 0.1 (0-0.7) k/uL Basophils # 0.0 (0-0.2) k/uL Hypochromasia Slight PT (9.0-12.0) sec INR (<1.2) APTT (22.0-30.0) sec D-Dimer (<0.60) mg/L FEU Sodium 138 (137-145) mmol/L Potassium 4.0 (3.5-5.1) mmol/L Chloride 101 (98-107) mmol/L Carbon Dioxide 26 (22-30) mmol/L Anion Gap 11 mmol/L BUN 14 (7-17) mg/dL Creatinine 0.69 (0.52-1.04) mg/dL Est GFR (MDRD) Af Amer >60 (>60 ml/min/1.73 sqM) Est GFR (MDRD) Non-Af >60 (>60 ml/min/1.73 sqM) Glucose 176 H (74-99) mg/dL POC Glucose (mg/dL) (75-99) mg/dL POC Glu Secondary Art Teacher ID Calcium 10.0 (8.4-10.2) mg/dL Magnesium 2.0 (1.6-2.3) mg/dL Total Bilirubin 0.4 (0.2-1.3) mg/dL AST 19 (14-36) U/L ALT 22 (9-52) U/L Alkaline Phosphatase 144 H (38-126) U/L Total Creatine Kinase 21 L (30-135) U/L CK-MB (CK-2) 0.4 (0.0-2.4) ng/mL CK-MB (CK-2) Rel Index 1.9 Troponin I <0.012 (0.000-0.034) ng/mL NT-Pro-B Natriuret Pep pg/mL Total Protein 6.5 (6.3-8.2) g/dL Albumin 3.7 (3.5-5.0) g/dL 05/20/17 05/20/17 05/20/17 Range/Units 17:55 17:55 23:45 WBC (3.8-10.6) k/uL RBC (3.80-5.40) m/uL Hgb (11.4-16.0) gm/dL Hct (34.0-46.0) % MCV (80.0-100.0) fL MCH (25.0-35.0) pg MCHC (31.0-37.0) g/dL RDW (11.5-15.5) % Plt Count (150-450) k/uL Neutrophils % % Lymphocytes % % Monocytes % % Eosinophils % % Basophils % % Neutrophils # (1.3-7.7) k/uL Lymphocytes # (1.0-4.8) k/uL Monocytes # (0-1.0) k/uL Eosinophils # (0-0.7) k/uL Basophils # (0-0.2) k/uL Hypochromasia PT 13.6 H (9.0-12.0) sec INR 1.4 H (<1.2) APTT 30.2 H (22.0-30.0) sec D-Dimer 3.90 H (<0.60) mg/L FEU Sodium (137-145) mmol/L Potassium (3.5-5.1) mmol/L Chloride (98-107) mmol/L Carbon Dioxide (22-30) mmol/L Anion Gap mmol/L BUN (7-17) mg/dL Creatinine (0.52-1.04) mg/dL Est GFR (MDRD) Af Amer (>60 ml/min/1.73 sqM) Est GFR (MDRD) Non-Af (>60 ml/min/1.73 sqM) Glucose (74-99) mg/dL POC Glucose (mg/dL) (75-99) mg/dL POC Glu Secondary Art Teacher ID Calcium (8.4-10.2) mg/dL Magnesium (1.6-2.3) mg/dL Total Bilirubin (0.2-1.3) mg/dL AST (14-36) U/L ALT (9-52) U/L Alkaline Phosphatase (38-126) U/L Total Creatine Kinase <20 L (30-135) U/L CK-MB (CK-2) 0.4 (0.0-2.4) ng/mL CK-MB (CK-2) Rel Index Troponin I <0.012 (0.000-0.034) ng/mL NT-Pro-B Natriuret Pep 321 pg/mL Total Protein (6.3-8.2) g/dL Albumin (3.5-5.0) g/dL 05/21/17 05/21/17 05/21/17 Range/Units 06:25 06:25 06:25 WBC 4.1 (3.8-10.6) k/uL RBC 3.31 L (3.80-5.40) m/uL Hgb 9.7 L (11.4-16.0) gm/dL Hct 31.9 L (34.0-46.0) % MCV 96.4 (80.0-100.0) fL MCH 29.3 (25.0-35.0) pg MCHC 30.4 L (31.0-37.0) g/dL RDW 14.4 (11.5-15.5) % Plt Count 414 (150-450) k/uL Neutrophils % 49 % Lymphocytes % 37 % Monocytes % 8 % Eosinophils % 2 % Basophils % 0 % Neutrophils # 2.0 (1.3-7.7) k/uL Lymphocytes # 1.5 (1.0-4.8) k/uL Monocytes # 0.4 (0-1.0) k/uL Eosinophils # 0.1 (0-0.7) k/uL Basophils # 0.0 (0-0.2) k/uL Hypochromasia PT (9.0-12.0) sec INR (<1.2) APTT (22.0-30.0) sec D-Dimer (<0.60) mg/L FEU Sodium 141 (137-145) mmol/L Potassium 3.9 (3.5-5.1) mmol/L Chloride 105 (98-107) mmol/L Carbon Dioxide 26 (22-30) mmol/L Anion Gap 10 mmol/L BUN 14 (7-17) mg/dL Creatinine 0.69 (0.52-1.04) mg/dL Est GFR (MDRD) Af Amer >60 (>60 ml/min/1.73 sqM) Est GFR (MDRD) Non-Af >60 (>60 ml/min/1.73 sqM) Glucose 107 H (74-99) mg/dL POC Glucose (mg/dL) (75-99) mg/dL POC Glu Secondary Art Teacher ID Calcium 9.8 (8.4-10.2) mg/dL Magnesium 1.9 (1.6-2.3) mg/dL Total Bilirubin 0.3 (0.2-1.3) mg/dL AST 17 (14-36) U/L ALT 26 (9-52) U/L Alkaline Phosphatase 129 H (38-126) U/L Total Creatine Kinase <20 L (30-135) U/L CK-MB (CK-2) 0.3 (0.0-2.4) ng/mL CK-MB (CK-2) Rel Index Troponin I <0.012 (0.000-0.034) ng/mL NT-Pro-B Natriuret Pep pg/mL Total Protein 6.0 L (6.3-8.2) g/dL Albumin 3.3 L (3.5-5.0) g/dL 05/21/17 Range/Units 07:01 WBC (3.8-10.6) k/uL RBC (3.80-5.40) m/uL Hgb (11.4-16.0) gm/dL Hct (34.0-46.0) % MCV (80.0-100.0) fL MCH (25.0-35.0) pg MCHC (31.0-37.0) g/dL RDW (11.5-15.5) % Plt Count (150-450) k/uL Neutrophils % % Lymphocytes % % Monocytes % % Eosinophils % % Basophils % % Neutrophils # (1.3-7.7) k/uL Lymphocytes # (1.0-4.8) k/uL Monocytes # (0-1.0) k/uL Eosinophils # (0-0.7) k/uL Basophils # (0-0.2) k/uL Hypochromasia PT (9.0-12.0) sec INR (<1.2) APTT (22.0-30.0) sec D-Dimer (<0.60) mg/L FEU Sodium (137-145) mmol/L Potassium (3.5-5.1) mmol/L Chloride (98-107) mmol/L Carbon Dioxide (22-30) mmol/L Anion Gap mmol/L BUN (7-17) mg/dL Creatinine (0.52-1.04) mg/dL Est GFR (MDRD) Af Amer (>60 ml/min/1.73 sqM) Est GFR (MDRD) Non-Af (>60 ml/min/1.73 sqM) Glucose (74-99) mg/dL POC Glucose (mg/dL) 116 H (75-99) mg/dL POC Glu Secondary Art Teacher ID Miranda Foster Calcium (8.4-10.2) mg/dL Magnesium (1.6-2.3) mg/dL Total Bilirubin (0.2-1.3) mg/dL AST (14-36) U/L ALT (9-52) U/L Alkaline Phosphatase (38-126) U/L Total Creatine Kinase (30-135) U/L CK-MB (CK-2) (0.0-2.4) ng/mL CK-MB (CK-2) Rel Index Troponin I (0.000-0.034) ng/mL NT-Pro-B Natriuret Pep pg/mL Total Protein (6.3-8.2) g/dL Albumin (3.5-5.0) g/dL Coagulation 05/20/17 Range/Units 17:55 PT 13.6 H (9.0-12.0) sec APTT 30.2 H (22.0-30.0) sec CBC 05/20/17 05/21/17 Range/Units 17:55 06:25 WBC 5.7 4.1 (3.8-10.6) k/uL RBC 3.59 L 3.31 L (3.80-5.40) m/uL Hgb 10.1 L 9.7 L (11.4-16.0) gm/dL Hct 33.6 L 31.9 L (34.0-46.0) % Plt Count 456 H 414 (150-450) k/uL Comprehensive Metabolic Panel 05/20/17 05/21/17 Range/Units 17:55 06:25 Sodium 138 141 (137-145) mmol/L Potassium 4.0 3.9 (3.5-5.1) mmol/L Chloride 101 105 (98-107) mmol/L Carbon Dioxide 26 26 (22-30) mmol/L BUN 14 14 (7-17) mg/dL Creatinine 0.69 0.69 (0.52-1.04) mg/dL Glucose 176 H 107 H (74-99) mg/dL Calcium 10.0 9.8 (8.4-10.2) mg/dL AST 19 17 (14-36) U/L ALT 22 26 (9-52) U/L Alkaline Phosphatase 144 H 129 H (38-126) U/L Total Protein 6.5 6.0 L (6.3-8.2) g/dL Albumin 3.7 3.3 L (3.5-5.0) g/dL Current Medications Generic Name Dose Route Start Last Admin Trade Name Freq PRN Reason Stop Dose Admin Hydrocodone Bitart/Acetaminophen 1 each 05/20/17 21:32 05/21/17 04:02 [place] 5-325 PO 1 each Q4HR PRN Administration Pain Alprazolam 0.5 mg 05/20/17 21:31 05/20/17 23:40 Xanax PO 0.5 mg BID PRN Administration Anxiety Sodium Chloride 1,000 mls @ 75 mls/hr 05/20/17 21:30 05/20/17 21:54 Saline 0.9% IV 75 mls/hr .[id number] CLAY Administration Levothyroxine Sodium 75 mcg 05/21/17 06:00 05/21/17 06:30 Synthroid PO 75 mcg DAILY@0600 [facility] Administration Metoprolol Tartrate 25 mg 05/21/17 08:00 Lopressor PO BID@0800,2100 [facility] Miscellaneous Information 1 each 05/20/17 19:40 Rx Info: Iv Contrast Was Given MISCELLANE 05/22/17 19:40 DAILY PRN Per Protocol Naloxone HCl 0.2 mg 05/20/17 21:28 Narcan IV Q2M PRN Opioid Reversal Ondansetron HCl 4 mg 05/20/17 21:28 Zofran IVP Q8HR PRN Nausea And Vomiting Rivaroxaban 20 mg 05/21/17 17:00 Xarelto PO DAILY@1700 [facility] Intake and Output 05/20/17 05/21/17 05/21/17 22:59 06:59 14:59 Other: # Voids 1 1 # Bowel Movements 1 Weight 55.7 kg 05/21/17 06:25 05/21/17 06:25 Assessment and Plan Assessment: ASSESSMENT 1. Chest pain, atypical secondary to cough 2. Paroxysmal atrial fibrillation on long-term anticoagulation 3. Essential hypertension 4. Diabetes mellitus PLAN Records requested from Dr. Elizabeth's office. We will obtain 2D echocardiogram and doppler study to assess cardiac structure and function. Her presentation appears more to do with a pulmonary process possible pneumonia. Nurse Practitioner note has been reviewed, I agree with a documented findings and plan of care. Patient was seen and examined.
[2017-05-21 15:58] VITALS: BP 129/63; PULSE 93; TEMP 98.7
[2017-05-21] MEDS ORDERED: BACILLUS COAGULANS PO SCH (17:00)
[2017-05-21] MEDS ORDERED: RIVAROXABAN 10 MG TAB PO SCH (17:00)
[2017-05-21] MEDS ORDERED: MAGNESIUM OXIDE 400 MG TAB PO SCH (17:00)
[2017-05-21] MEDS ORDERED: DOCUSATE 100 MG CAP PO SCH (17:00)
[2017-05-21] MEDS ORDERED: SYMBICORT 160-4.5 MCG INHALER INHALATION SCH (17:00)
[2017-05-21] MEDS ORDERED: TRIAMCINOLONE 0.1% CREAM 80 GM TUBE TOPICAL SCH (21:00)
[2017-05-22] MEDS ORDERED: LORATADINE 10 MG TAB PO SCH (08:00)
--- NOTE | 2017-05-23 08:23 | ECHOF ---
Referral Reason:chest pain MEASUREMENTS -------- HEIGHT: 157.5 cm WEIGHT: 55.3 kg BP: 134/71 IVSd: 1.1 cm (0.6 - 1.1) LVIDd: 4.4 cm (3.9 - 5.3) LVPWd: 1.2 cm (0.6 - 1.1) IVSs: 1.5 cm LVIDs: 1.7 cm LVPWs: 1.7 cm LAESV Index (A-L): 32.36 ml/m Ao Diam: 3.9 cm (2.0 - 3.7) AV Cusp: 1.9 cm (1.5 - 2.6) LA Diam: 2.6 cm (2.7 - 3.8) MV E Billy: 0.75 m/s MV DecT: 290 ms MV A Billy: 1.34 m/s MV E/A Ratio: 0.55 AV maxP.13 mmHg AV meanP.42 mmHg RAP: 5.00 mmHg RVSP: 30.04 mmHg FINDINGS -------- Resting tachycardia (HR>100bpm). This was a technically adequate study. The left ventricular size is normal. There is borderline concentric left ventricular hypertrophy. Left ventricular systolic function is hyperdynamic with an estimated EF of >70%. The right ventricle is normal in size and function. LA is midly dilated 29-33ml/m2. The right atrium is normal in size. Aortic valve is trileaflet and is mildly thickened. Trace amount of aortic regurgitation. There is no evidence of aortic stenosis. The mitral valve leaflets are mildly thickened. There is trace to mild mitral regurgitation. Trace tricuspid regurgitation present. Right ventricular systolic pressure is normal at < 35 mmHg. There is no evidence of pulmonary hypertension. The pulmonic valve was not well visualized. The aortic root size is normal. Normal inferior vena cava with normal inspiratory collapse consistent with estimated right atrial pressure of 5 mmHg. The pericardium is normal. There is no pericardial effusion. CONCLUSIONS -------- 1. Resting tachycardia (HR>100bpm). 2. There is trace to mild mitral regurgitation. 3. Trace tricuspid regurgitation present. 4. Right ventricular systolic pressure is normal at < 35 mmHg. 5. There is no evidence of pulmonary hypertension. 6. The pulmonic valve was not well visualized. 7. The aortic root size is normal. 8. There is no pericardial effusion. 9. This was a technically adequate study. 10. The left ventricular size is normal. 11. There is borderline concentric left ventricular hypertrophy. 12. Left ventricular systolic function is hyperdynamic with an estimated EF of >70%. 13. LA is midly dilated 29-33ml/m2. 14. Aortic valve is trileaflet and is mildly thickened. 15. Trace amount of aortic regurgitation. 16. The mitral valve leaflets are mildly thickened. E [employer] DEVELOPER: Nick Land RDCS
== END 2017-05-21 16:03 ==
LOC: EC 17:48 → 3OBS 21:30
PROVIDERS: ADMIT Family Medicine; ATTEND Family Medicine
DX: R07.89 Other chest pain (principal); R05 Cough; R79.89 Other specified abnormal findings of blood chemistry; I48.0 Paroxysmal atrial fibrillation; Z79.01 Long term (current) use of anticoagulants; I10 Essential (primary) hypertension; E03.9 Hypothyroidism, unspecified; E11.9 Type 2 diabetes mellitus without complications; J45.20 Mild intermittent asthma, uncomplicated; M19.90 Unspecified osteoarthritis, unspecified site; M81.0 Age-related osteoporosis without current pathological fracture; F41.9 Anxiety disorder, unspecified; F32.9 Major depressive disorder, single episode, unspecified; G43.909 Migraine, unspecified, not intractable, without status migrainosus; I25.10 Atherosclerotic heart disease of native coronary artery without angina pectoris; Z87.81 Personal history of (healed) traumatic fracture; Z87.891 Personal history of nicotine dependence; Z86.718 Personal history of other venous thrombosis and embolism; Z87.440 Personal history of urinary (tract) infections; Z88.6 Allergy status to analgesic agent; Z88.1 Allergy status to other antibiotic agents; Z88.5 Allergy status to narcotic agent; Z88.0 Allergy status to penicillin; Z88.2 Allergy status to sulfonamides; Z88.8 Allergy status to other drugs, medicaments and biological substances; Z79.899 Other long term (current) drug therapy; Z79.51 Long term (current) use of inhaled steroids; Z80.1 Family history of malignant neoplasm of trachea, bronchus and lung
CPT/HCPCS: 99285; 36415; 93005; 93306; 85379; 83880; 80053 ×2; 82550 ×2; 82553 ×2; 83735 ×2; 84484 ×2; 85025 ×2; 85610; 85730; 87040; 71020; 71275; G0378 ×2; Q9967

== ENCOUNTER → 2018-03-24 | Outpatient (CLI) | payer MEDICARE ==
--- NOTE | 2018-03-24 16:52 | XR ---
EXAMINATION TYPE: XR chest 2V DATE OF EXAM: 03/24/2018 COMPARISON: 05/20/2017 HISTORY: Chest pain TECHNIQUE: Frontal and lateral views of the chest are obtained. FINDINGS: Heart is normal. Thoracic aorta is atheromatous. Lungs are clear of consolidation. There i s vertebroplasty of L1. There is osteopenia. There is anterior wedging of T9 and T6. IMPRESSION: No active cardiopulmonary disease. Multiple old thoracic compression fractures. No signi ficant change.
== END | disposition home or self-care (01) ==
LOC: RADXRMAIN 16:17
PROVIDERS: ATTEND Internal Medicine Critical Care Medicine
DX: J45.901 Unspecified asthma with (acute) exacerbation (principal)
CPT/HCPCS: 71046